=== PATIENT | female | born 1965 | race Caucasian/White ===

== ENCOUNTER 2018-11-04 10:17 | Observation (INO) ==
--- NOTE | 2018-11-04 10:31 | EKG Report ---
Test Performed on : 11/04/2018 10:27:34 AM Test Reason : cp/sob Blood Pressure : / mmHG Vent. Rate : 105 BPM Atrial Rate : 105 BPM P-R Int : 166 ms QRS Dur : 078 ms QT Int : 348 ms P-R-T Axes : 069 -13 057 degrees QTc Int : 459 ms Sinus tachycardia. Otherwise normal ECG When compared with ECG of 21-SEP-2008 07:58, No significant change was found Unconfirmed Result
[2018-11-04 10:44] LABS: BASO# 0.03 X1000 (0.0-0.2); BASO% 0.5 % (0.0-0.8); EOS% 1.5 % (0.0-10.0); HEMATOCRIT 38.1 % (37.0-47.0); HEMOGLOBIN 12.9 g/dL (12.0-16.0); LYMPH# 2.02 X1000 (1.2-3.4); LYMPH% 30.5 % (20.5-51.1); MCH 31.8 PG (27-31); MCHC 33.9 g/dL (33-37); MCV 93.8 FL (81-99); MONO# 0.48 X1000 (0.11-0.59); MONO% 7.2 % (1.7-9.3); MPV 9.4 FL (7.4-10.4); NEUT% 60.3 % (42.2-75.2); PLT 195 X1000 (130-400); RBC 4.06 XMIL (4.2-5.4); RDW 13.3 % (11.5-14.5); WBC 6.63 X1000 (4.8-10.8)
[2018-11-04 10:56] LABS: INR 1.09
[2018-11-04 10:57] LABS: PTT 36.7 Seconds (22.3-41.8)
[2018-11-04 12:01] LABS: AGAP 14; ALB/GLOB RATIO 1.2; ALBUMIN 4.4 g/dL (3.5-5.0); ALKALINE PHOSPHATASE 140 U/L (32-104); BUN 8 mg/dL (8-22); CALCIUM 9.4 mg/dL (8.8-10.2); CHLORIDE 104 mmol/L (98-107); CK PROFILE 70 U/L (24-173); COSMO 277; CREATININE 0.7 mg/dL (0.5-0.9); ESTIMATED GFR > 60; GLUCOSE 121 mg/dL (70-104); GOT 20 U/L (10-30); GPT 14 U/L (10-36); POTASSIUM 3.9 mmol/L (3.5-5.1); SODIUM 139 mmol/L (136-145); TCO2 21 mmol/L (25-35); TOTAL BILIRUBIN 0.59 mg/dL (0.20-1.00); TOTAL PROTEIN 8.2 g/dL (6.3-8.3)
--- NOTE | 2018-11-04 12:23 | Diag Imaging Result Doc PS360 ---
CHEST-2 VIEWS - 11/04/2018 INDICATION: cp/sob COMPARISON: 12/14/2012 FINDINGS: The lungs are normally expanded and clear. Heart size and mediastinal contours are normal. No pneumothorax or pleural effusion. There is a new stent in the region of the aortic arch. IMPRESSION: Negative exam. Electronically signed by Anand Hammer 11/04/2018 12:20 PM
[2018-11-04] MEDS ORDERED: ASPIRIN PO ONE (13:18)
[2018-11-04] MEDS ORDERED: ASPIRIN ONE (13:21)
[2018-11-04] MEDS ORDERED: MORPHINE IV ONE (15:40)
--- NOTE | 2018-11-04 18:22 | PROVIDER DOCUMENTATION ---
This chart was entered by Ann Umanzor Scribe, acting as scribe for Meseret Garcia CRNP. HPI-Chest Pain - General Chief Complaint: Chest Pain Stated Complaint: CHEST PAIN/CHEST TIGHTNESS Time Seen by Provider: 11/04/18 14:07 Source: patient, family (father) Allergies/Adverse Reactions: Patient Allergies Allergy/AdvReac Type Severity Reaction Status Date / Time modafinil [From Provigil] Allergy Unknown Verified 01/24/15 15:57 Sulfa (Sulfonamide Allergy HIVES Verified 12/14/12 10:59 Antibiotics) Home Medications: Home Medication List Medication Instructions Recorded Confirmed Last Taken Type Omeprazole 40 mg PO DAILY 12/14/12 01/24/15 01/24/15 07:00 History Sertraline HCl [Zoloft] 200 mg PO DAILY 12/14/12 01/24/15 01/25/15 07:00 History Allopurinol 100 mg PO DAILY 01/24/15 01/24/15 01/24/15 07:00 History Atorvastatin Calcium [Lipitor] 80 mg PO DAILY 01/24/15 01/24/15 01/24/15 07:00 History Meloxicam [Mobic] 15 mg PO DAILY 01/24/15 01/24/15 01/24/15 07:00 History - History of Present Illness-CP Nature of Presenting Problem: 53 yowf presents to the ed with c/o generalized chest wall pain with cough and sob. pt is still a smoker and states she has copd. pt sts she is anxious due to her mother having a SD last week. pt on exam sts the pain has gotten a little worse. also reports she has a cardiac hx and has had a stent placed. Location: reports: substernal Chest Pain Radiation: reports: no radiation Quality of Pain: reports: fullness, pressure Severity in ED: mild Onset/Duration: this morning Timing: gone now Context/Activities at Onset: reports: light activity Modifying Factors: improves with: nothing Associated Symptoms: reports: shortness of breath. denies: dizziness, nausea, vomiting Nitro Today/Relief: no nitro taken today Aspirin Treatment Today: 325 mg x 1, provided by ED Prior Chest Pain/Cardiac Workup: reports: no prior chest pain Similar Symptoms Previously?: No Recently Seen Here or By Another Healthcare Provider: No Review of Systems - Adult - REVIEW OF SYSTEMS - ADULT Constitutional: denies: chills, fever Eyes: reports: no symptoms reported Ears, Nose, Mouth & Throat: reports: no symptoms reported Cardiovascular: reports: see HPI, chest pain. denies: palpitations, syncope Respiratory: reports: see HPI, cough, shortness of breath Gastrointestinal: reports: no symptoms reported Genitourinary: reports: no symptoms reported Musculoskeletal: denies: back pain, neck pain Integumentary: reports: no symptoms reported Neurological: denies: dizziness/vertigo, headache/migraines Psychiatric: reports: see HPI, anxiety Endocrine: reports: no symptoms reported Hematologic/Lymphatic: reports: no symptoms reported Allergic/Immunologic: reports: no symptoms reported All Other Systems: Reviewed and Negative Past History - Adult - PAST MEDICAL HISTORY-ADULT Review of Records: reports: Old Records Reviewed, Nursing Assessment Review, Medications Reviewed, Social history reviewed & non-contributory. Major Childhood Illnesses: reports: denies history Cardiovascular: reports: HTN Respiratory: reports: denies history Gastrointestinal: reports: denies history Obstetrical/Gynecological: reports: denies history Genitourinary: reports: denies history Musculoskeletal: reports: denies history Hand Dominance: Right Handed Neurological: reports: denies history Psychiatric: reports: anxiety, ptsd Endocrine/Immune: reports: denies history Other Conditions: reports: denies history - PRIOR SURGERIES/PROCEDURES Surgical/Procedure History: reports: hysterectomy, other (stents) - IMMUNIZATION STATUS Childhood Immunizations: See Nurse Assessment Flu Vaccine: See Nurse Assessment - FAMILY HISTORY Family History: reviewed, not pertinent - SOCIAL HISTORY Smoking: cigarettes, greater than 1 pack/day Provider spent 3-5 mins advising pt. on dangers of tobacco.: Discussed manners to quit use, and f/u contacts for add'l counseling. Substance Use: denies Alcohol Use Frequency: never Living Situation: family Physical Exam-General - PHYSICAL EXAM-ADULT Initial Vital Signs Reviewed: Yes - CONSTITUTIONAL General Appearance: appears well, alert, no apparent distress, anxious - EYES Eyes: PERRL/EOMI, pink conjunctivae - HEAD, EARS, NOSE, MOUTH & THROAT HENMT: normocephalic/atraumatic, moist mucous membranes, normal ENT inspection - NECK Neck: non-tender, full range of motion, supple, normal inspection - RESPIRATORY Respiratory: chest non-tender, lungs clear, normal breath sounds - CARDIOVASCULAR Cardiovascular: normal peripheral pulses, tachycardia (101) - GASTROINTESTINAL (ABDOMEN) Abdominal Exam: normal bowel sounds, non tender, soft - LYMPHATIC Lymphatic: no adenopathy - MUSCULOSKELETAL Back Exam: normal inspection, no CVA tenderness, no vertebral tenderness Extremity: normal range of motion, non-tender, normal gait, normal inspection - SKIN Integumentary: normal color, normal turgor, warm/dry - NEUROLOGIC Neurologic: grossly normal, no motor/sensory deficits - PSYCHIATRIC Psych/Mental Status: normal mood/affect, normal thought content, normal thought process, oriented x 3, anxious - HEART Score HEART Score: History: Slightly Suspicious HEART Score: ECG: Normal HEART Score: Age: 45-65 Years HEART Score: Risk Factors for Atherosclerotic Disease: > or = 3 Risk Factors or History of Atherosclerotic Disease HEART Score: Troponin: < or = Normal Limit Total HEART Score:: 3 Progress - PLAN OF CARE/RESULTS Progress/Plan/Lab Results: Vital Signs - 8 hr 11/04/18 10:22 11/04/18 13:11 11/04/18 14:06 Temperature 97.7 F 97.8 F Pulse Rate 101 H 97 H Respiratory Rate 20 18 Blood Pressure 122/75 152/92 O2 Sat by Pulse Oximetry 98 98 97 11/04/18 14:07 11/04/18 14:10 11/04/18 14:14 Temperature 98.1 F Pulse Rate 84 Respiratory Rate 18 Blood Pressure 137/93 137/93 O2 Sat by Pulse Oximetry 97 97 99 11/04/18 14:17 11/04/18 14:20 11/04/18 14:30 Temperature Pulse Rate Respiratory Rate Blood Pressure 131/80 O2 Sat by Pulse Oximetry 95 96 96 11/04/18 14:32 11/04/18 14:33 11/04/18 14:40 Temperature Pulse Rate Respiratory Rate Blood Pressure 122/73 O2 Sat by Pulse Oximetry 96 95 94 L 11/04/18 14:47 11/04/18 14:50 11/04/18 15:00 Temperature Pulse Rate Respiratory Rate Blood Pressure 124/66 O2 Sat by Pulse Oximetry 95 95 95 11/04/18 15:02 11/04/18 15:10 11/04/18 15:17 Temperature Pulse Rate Respiratory Rate Blood Pressure 122/70 126/86 O2 Sat by Pulse Oximetry 94 L 97 95 11/04/18 15:20 11/04/18 15:30 11/04/18 15:32 Temperature Pulse Rate Respiratory Rate Blood Pressure 144/71 O2 Sat by Pulse Oximetry 97 97 96 11/04/18 15:40 11/04/18 15:50 11/04/18 16:32 Temperature Pulse Rate Respiratory Rate Blood Pressure 138/94 O2 Sat by Pulse Oximetry 95 90 L 97 11/04/18 16:33 11/04/18 16:40 11/04/18 16:47 Temperature Pulse Rate 80 84 Respiratory Rate 13 14 Blood Pressure 125/74 O2 Sat by Pulse Oximetry 96 95 94 L 11/04/18 16:50 11/04/18 17:00 11/04/18 17:10 Temperature Pulse Rate 102 H 83 78 Respiratory Rate 24 17 16 Blood Pressure O2 Sat by Pulse Oximetry 95 96 95 11/04/18 17:20 11/04/18 17:30 11/04/18 17:40 Temperature Pulse Rate 80 81 73 Respiratory Rate Blood Pressure O2 Sat by Pulse Oximetry 97 98 97 11/04/18 17:50 Temperature Pulse Rate 75 Respiratory Rate Blood Pressure O2 Sat by Pulse Oximetry 93 L Laboratory Results - last 24 hr 11/04/18 11/04/18 11/04/18 10:33 10:33 10:33 WBC 6.63 RBC 4.06 L Hgb 12.9 Hct 38.1 MCV 93.8 MCH 31.8 H MCHC 33.9 RDW Std Deviation 13.3 Plt Count 195 MPV 9.4 Immature Gran % (Auto) 0.0 Neut % (Auto) 60.3 Lymph % (Auto) 30.5 Stafford % (Auto) 7.2 Eos % (Auto) 1.5 Baso % (Auto) 0.5 Immature Gran # (Auto) 0.00 Neut # (Auto) 4.00 Lymph # (Auto) 2.02 Stafford # (Auto) 0.48 Eos # (Auto) 0.10 Baso # (Auto) 0.03 PT INR PTT (Actin FS) Sodium 139 Potassium 3.9 Chloride 104 Carbon Dioxide 21 L Anion Gap 14 BUN 8 Creatinine 0.7 Estimated GFR/1.73 m2 > 60 BUN/Creatinine Ratio 11 Glucose 121 H Calculated Osmolality 277 Calcium 9.4 Total Bilirubin 0.59 AST 20 ALT 14 Alkaline Phosphatase 140 H Creatine Kinase 70 Troponin T Ubn-B-Gbfxeyebgmq Pept 124 Total Protein 8.2 Albumin 4.4 Globulin 3.8 Albumin/Globulin Ratio 1.2 11/04/18 11/04/18 11/04/18 10:33 10:33 16:35 WBC RBC Hgb Hct MCV MCH MCHC RDW Std Deviation Plt Count MPV Immature Gran % (Auto) Neut % (Auto) Lymph % (Auto) Stafford % (Auto) Eos % (Auto) Baso % (Auto) Immature Gran # (Auto) Neut # (Auto) Lymph # (Auto) Stafford # (Auto) Eos # (Auto) Baso # (Auto) PT 15.0 INR 1.09 PTT (Actin FS) 36.7 Sodium Potassium Chloride Carbon Dioxide Anion Gap BUN Creatinine Estimated GFR/1.73 m2 BUN/Creatinine Ratio Glucose Calculated Osmolality Calcium Total Bilirubin AST ALT Alkaline Phosphatase Creatine Kinase Troponin T < 0.010 < 0.010 Stz-[id number]-Gxzfpldaajv Pept Total Protein Albumin Globulin Albumin/Globulin Ratio Orders Category Date Time Status Nursing- MD Consult Request ROUTINE Care 11/04/18 16:31 Active Saline Loc NOW Care 11/04/18 15:41 Active Physician/Provider Consults Routine Cons 11/04/18 16:30 Ordered Heart Healthy Diet Diet 11/04/18 16:28 Active Miscellaneous Diet Routine Diet 11/04/18 17:34 Active NPO Diet 11/05/18 00:01 Active CHEST-2 VIEWS [RAD] Stat Exams 11/04/18 11:48 Completed Juliana [MYOCARDIAL PERF SCAN, STR/REST] [NM] Routine Exams 11/04/18 16:29 Ordered A1C HGB W EST AVG GLUCOSE [CHEM] Routine Lab 11/05/18 06:00 Uncollected CBC WITH ELECTRONIC DIFF [HEME] Stat Lab 11/04/18 10:33 Completed CK PROFILE [SP CHEM] Stat Lab 11/04/18 10:33 Completed COMPREHENSIVE METABOLIC PANEL [CHEM] Stat Lab 11/04/18 10:33 Completed LIPID PROFILE W/CALC LDL [LIPIDS] Routine Lab 11/05/18 06:00 Uncollected PRO B-NATRIURETIC PEPTIDE Stat Lab 11/04/18 10:33 Completed PROTIME WITH INR [COAG] Stat Lab 11/04/18 10:33 Completed PTT [COAG] Stat Lab 11/04/18 10:33 Completed TROPONIN T Lab 11/04/18 21:00 Uncollected TROPONIN T Lab 11/05/18 05:00 Uncollected TROPONIN T Lab 11/05/18 13:00 Uncollected TROPONIN T Stat Lab 11/04/18 10:33 Completed TROPONIN T Stat Lab 11/04/18 16:35 Completed Aspirin Med 11/04/18 13:21 Discontinued 325 mg .ROUTE .STK-MED ONE Aspirin Med 11/04/18 13:18 Discontinued 325 mg PO NOW ONE Morphine Med 11/04/18 15:40 Discontinued 4 mg IV NOW ONE CP/SOB/Palp >45 yrs of Age Stat Oth 11/04/18 10:25 Ordered EKG [EKG] Routine Ther 11/05/18 07:00 Ordered EKG [EKG] Stat Ther 11/04/18 10:25 Draft Echo Spec/Color Dop W/O Contra Routine Ther 11/04/18 16:28 Completed Transfer/Admit Order [TRANSFER] Routine Transfer 11/04/18 17:03 Ordered Result Diagrams: 11/04/18 10:33 11/04/18 10:33 - REASSESSMENT Reassessment #1 Time Reassessed: 14:28 Status: improving - EKG 1 Time of EKG reading by physician:: 10:27 EKG Read and Signed by:: Rolf Moura EKG Interpretation (*Must complete 3 of following elements*): Normal Rate: 105 Rhythm: sinus tachycardia [place]: normal QRS: normal FL Interval: normal ST Wave: normal - XRAY 1 XRAY: Bilateral XRAY Study: Chest Impression: See EMR Report (CHEST-2 VIEWS - 11/04/2018 INDICATION: cp/sob COMPARISON: 12/14/2012 FINDINGS: The lungs are normally expanded and clear. Heart size and mediastinal contours are normal. No pneumothorax or pleural effusion. There is a new stent in the region of the aortic arch. IMPRESSION: Negative exam. Electronically signed by Anand Hammer 11/04/2018 12:20 PM 11/04/18 1220 Interpreting Physician: Anand Hammer MD Dictated Date/Time: 11/04/18 1220 cc: Rolf Moura MD; Mark Gray) - CONSULTS/PCP/HOSPITALIST Notification #1 *Consult/PCP/Hospitalist*: hospitalist spoke with dayne zhu for dr parrish Time Discussed: 15:25 Consult Disposition: Admit Departure - Departure Date of Disposition Decision: 11/04/18 Time of Disposition Decision: 15:28 DIAGNOSIS: Chest wall pain, Tobacco use disorder Disposition: ADMITTED INPATIENT 09 Certified Medical Emergency: Emergent Condition: Stable Referrals and Follow-Ups: Mark Gray [Primary Care Provider] - - Critical Care Note This patient required my direct & personal management of CC.: No Attestation - Physician/ GRADY Attestation Patient care was provided by Advanced Practice Provider:: Yes Advanced Practice Provider:: Meseret Garcia Advanced Practice Provider documentation review:: The Mid-level provider documentation, treatment plan and medical decision making was reviewed by the physician who agrees with all treatment and medical decision making by the MLP. The physician spent face to face time with patient:: No Advanced Practice Provider documentation review:: Supervising physician onsite and consulted in the evaluation and care of this patient. The physician did not have a face to face encounter with the patient. This chart was documented by the indicated scribe, (Ann Umanzor Scribe) and accurately reflects the services I performed and decisions made by me, Meseret Garcia CRNP, as attested by the provider's signature.
--- NOTE | 2018-11-04 18:41 | HISTORY AND PHYSICAL ---
PRIMARY CARE PROVIDER: DR. Mark Gray. DIE CAST DIE MAKER: DR. Garcia in [place]. VASCULAR SURGEON: Dr. Hair at [facility]. [facility]: Dr. Fitzgerald. HORTICULTURAL FARMWORKER: Dr. Escobar. PUBLIC AFFAIRS MANAGER: In [place]. CHIEF COMPLAINT: Chest pain. HISTORY OF PRESENT ILLNESS: Ms. Valles is a pleasant 53-year-old female, who carries a past medical history of osteoarthritis, fibromyalgia, neuralgia, MGUS, colitis, tobacco use and abuse, GERD, anxiety, hyperlipidemia, PTSD, and lipoma in her left lower heart. She did have to wear a heart monitor for that and everything checked out. She had several complaints, but her main complaint today was chest pain. She states she has pain under her left arm for 2 to 3 days; however, today she got some shortness of breath and tightness in her chest with heaviness. Her pain at that time was 8 to 9/10. Now, after receiving morphine, it is down to a 2. She also reports she has not been sleeping well for the past several months. She has had a weight loss of 45 pounds secondary to loss of appetite. This has been ongoing for a few months as well. She reports her mother just had a STEMI this past week and had 99% blockage, and had to have a stent, so she has been under some stress. We will admit her to the medical floor and work her up for chest pain rule out. PAST MEDICAL HISTORY: 1. Colitis. 2. Tobacco use and abuse. 3. Gastroesophageal reflux disease. 4. Anxiety. 5. PTSD. 6. Hyperlipidemia. 7. MGUS. 8. Lipoma in the right lower heart. 9. PTSD. 10. Osteoarthritis. 11. Fibromyalgia. 12. Neuralgia. PAST SURGICAL HISTORY: 1. ORIF of the distal radius. 2. Hysterectomy, secondary to precancerous cells. 3. Stent placement to her subclavian. 4. Left endarterectomy. 5. Cholecystectomy. 6. Carpal tendon transfer as well as carpal tunnel repair. 7. . 8. Left ear cyst removal. 9. Left arm cyst removal. 10. Tonsillectomy. FAMILY HISTORY: Mother with recent STEMI. Father with 2 KS's. Brother with coronary artery disease. Brother with skin cancer. Mother with mitral valve prolapse. Mother with lymphoma; she had to undergo chemotherapy for this, and skin cancers. SOCIAL HISTORY: She is a half pack to a pack per day smoker. She has done so for 40 years. She lives in [place]. She is . She has 1 child. ALLERGIES: 1. Provigil, unknown reaction. 2. Sulfa, causes hives. HOME MEDICATIONS: Home medications are not correct in the computer. She states she takes: 1. Pepcid. 2. Full-dose aspirin. 3. Cymbalta. 4. Plavix. 5. Statin. 6. She will take p.r.n. very cautiously laxatives for her constipation at times; however, if she overdoes it, she will have diarrhea for an extensive amount of time. REVIEW OF SYSTEMS: A 14 point review of systems was completed and negative except for those mentioned in HPI. PHYSICAL EXAMINATION: VITAL SIGNS: Temperature is 97.7 degrees, heart rate 84, respirations 18, blood pressure 138/94, O2 saturation 97% on room air. GENERAL: Ms. Valles is a pleasant 53-year-old female who is lying toward her left side, undergoing an echocardiogram, in no acute distress. HEENT: Atraumatic, normocephalic. PERRL. NECK: Supple. Trachea midline. CV: S1, S2 appreciated. No murmurs, gallops, or rubs noted. RESPIRATORY: Lung sounds clear to excursion. Nonlabored breathing. GI: Soft, nontender, nondistended. Positive bowel sounds in 4 quadrants. SKIN: Warm, dry, and intact. EXTREMITIES: Negative for edema. No clubbing, no cyanosis. NEUROLOGIC: Patient is alert and oriented x4. Follows commands. Moves all extremities. No focal deficits noted. DIAGNOSTIC DATA: EKG with sinus tachycardia at 105 beats per minute. Chest x-ray negative exam. LABORATORY DATA: White count 6, hemoglobin and hematocrit 12 and 38, platelet count 195,000. Sodium 139, potassium 39, BUN 8, creatinine 0.7, blood glucose was 121, alkaline phosphatase 140. Two sets of troponins are negative. ProBNP 124. Albumin 4.4. ASSESSMENT AND PLAN: 1. Chest pain, rule out. We will continue full-dose aspirin and make her n.p.o. after midnight. She will be set up for a Lexiscan in the morning. We will check a lipid profile and hemoglobin A1c. Nitroglycerin for chest pain. Echocardiogram is being done now. We will check recheck an electrocardiogram in the morning. Consult Cardiology. The patient does have risk factors as well as a strong family history; however, she has never had any cardiac stents before. She has had a subclavian stent in the past as well as endarterectomy. 2. Osteoarthritis, fibromyalgia, and neuralgia. Will continue with home medications when correctly verified. 3. Monoclonal gammopathy of unknown significance. Patient follows with Dr. Fitzgerald. 4. Colitis. Aware. 5. Tobacco use and abuse. Patient has been educated on smoking cessation as well as the means to quit. 6. Gastroesophageal reflux disease. Continue proton pump inhibitor. 7. Anxiety and post-traumatic stress disorder. Will continue Cymbalta when reconciled. 8. Hyperlipidemia. Will continue statin. 9. Lipoma in the heart. The patient has already been checked out by this. She states it is benign. 10. Colitis history. Aware. 11. Peripheral vascular disease. She has an endarterectomy as well as a stent placed to her subclavian. 12. Further recommendations to follow physician evaluation, laboratory and diagnostic data. Dictated by CLARI Hamm for Renan Chery MD cc: MD Mark Llamas MD
[2018-11-04] MEDS ORDERED: TYLENOL PO PRN (20:49)
[2018-11-04] MEDS ORDERED: NITROGLYCERIN SL PRN (20:49)
[2018-11-04] MEDS ORDERED: ZOFRAN IV PRN (20:49)
[2018-11-05 05:19] LABS: BASO# 0.03 X1000 (0.0-0.2); BASO% 0.5 % (0.0-0.8); EOS# 0.15 X1000 (0.0-0.7); EOS% 2.4 % (0.0-10.0); HEMATOCRIT 34.9 % (37.0-47.0); HEMOGLOBIN 11.7 g/dL (12.0-16.0); LYMPH# 3.05 X1000 (1.2-3.4); LYMPH% 48.9 % (20.5-51.1); MCH 31.6 PG (27-31); MCHC 33.5 g/dL (33-37); MCV 94.3 FL (81-99); MONO# 0.52 X1000 (0.11-0.59); MONO% 8.3 % (1.7-9.3); MPV 9.2 FL (7.4-10.4); NEUT# 2.49 X1000 (1.4-6.5); NEUT% 39.9 % (42.2-75.2); PLT 188 X1000 (130-400); RDW 13.4 % (11.5-14.5); WBC 6.24 X1000 (4.8-10.8)
[2018-11-05 05:33] LABS: HEMOGLOBIN A1C 4.9 % (4.8-6.0)
[2018-11-05 05:47] LABS: AGAP 11; ALB/GLOB RATIO 1.2; ALBUMIN 3.8 g/dL (3.5-5.0); ALKALINE PHOSPHATASE 120 U/L (32-104); BUN 9 mg/dL (8-22); CALCIUM 8.4 mg/dL (8.8-10.2); CHLORIDE 106 mmol/L (98-107); COSMO 280; CREATININE 0.6 mg/dL (0.5-0.9); ESTIMATED GFR > 60; GLUCOSE 95 mg/dL (70-104); GOT 17 U/L (10-30); GPT 12 U/L (10-36); POTASSIUM 3.8 mmol/L (3.5-5.1); SODIUM 141 mmol/L (136-145); TCO2 24 mmol/L (25-35); TOTAL BILIRUBIN 0.39 mg/dL (0.20-1.00); TOTAL PROTEIN 7.1 g/dL (6.3-8.3)
[2018-11-05 05:50] LABS: CHOLESTEROL 146 mg/dL (0-200); HDL 31 mg/dL (45-65); LDL 82 mg/dL; TRIGLYCERIDES 163 mg/dL (35-135); VLDL 33 mg/dL
[2018-11-05] MEDS: PRILOSEC PO SCH ×2 (06:18→16:08)
--- NOTE | 2018-11-05 07:56 | EKG Report ---
Test Performed on : 11/05/2018 06:36:42 AM Test Reason : chest pain Blood Pressure : / mmHG Vent. Rate : 072 BPM Atrial Rate : 072 BPM P-R Int : 180 ms QRS Dur : 092 ms QT Int : 452 ms P-R-T Axes : 065 014 049 degrees QTc Int : 494 ms Normal sinus rhythm. Prolonged QT Abnormal ECG When compared with ECG of 04-NOV-2018 10:27, (Unconfirmed) No significant change was found Unconfirmed Result
[2018-11-05] MEDS: ASPIRIN PO SCH ×2 (09:02→16:08)
[2018-11-05] MEDS: MORPHINE IV PRN ×2 (09:15→14:57)
--- NOTE | 2018-11-05 09:55 | ECHO REPORT ---
ORDER DATE: 11/04/2018 INTERPRETING PHYSICIAN: Loy Monsivais MD INDICATION: Chest pain and shortness of breath. M-MODE MEASUREMENTS: Left ventricle end diastole: 3.5 cm. Left ventricle end systole: 2 cm. Posterior wall: 0.9 cm. Interventricular septum: 0.9 cm. Left atrium: 3.3 cm. Aortic root: 3.6 cm. SUMMARY OF 2-DIMENSIONAL IMAGIN. Left ventricular function is normal with an ejection fraction of 66%. No wall motion abnormality is noted. 2. The aortic valve looks normal. Color flow mapping is unremarkable. 3. The tricuspid valve looks normal. Color flow mapping is unremarkable. 4. The inferior vena cava is not dilated. 5. Pulmonary artery pressure is estimated at 33 mmHg. 6. The pulmonic valve is visually normal. 7. The mitral valve looks normal. Color flow mapping is unremarkable. 8. Pulsed wave Doppler of mitral inflow is normal. 9. Tissue Doppler of septal and lateral mitral annulus averages 11 cm. 10.Pulmonary venous flow is normal. 11.There is no diastolic dysfunction. 12.There is a prominent epicardial fat pad. 13.There is no effusion. 14.The right-sided chambers appear to be unremarkable. Clinical correlation is recommended. cc: MD Renan Sky MD
[2018-11-05] MEDS ORDERED: LEXISCAN ONE (12:04)
--- NOTE | 2018-11-05 12:14 | CONSULTATION ---
DATE OF CONSULTATION: 11/05/2018 IMPRESSION: 1. Chest discomfort with mixed features but predominantly atypical presentation for myocardial ischemia. Cardiac enzymes normal despite extended duration of discomfort. 2. Mild nonobstructive coronary atherosclerosis on previous coronary CT scan performed october 2017. Study had been obtained to evaluate left atrial mass. 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 3. Anxiety disorder. 4. Fibromyalgia. 5. Post traumatic stress disorder. 6. Hypertension. 7. Hyperlipidemia. 8. Chronic ongoing cigarette use. 9. Peripheral vascular disease with history of previous left carotid endarterectomy and left subclavian artery stent. RECOMMENDATIONS: 1. Agree with pursuit of stress myocardial perfusion imaging. If negative, the patient can be discharged on continued anti-platelet therapy. If study abnormal, would consider pursuit of cardiac catheterization/coronary angiography. 2. Smoking cessation strongly advised. HISTORY: This 53-year-old white female with past history of anxiety disorder, PTSD, fibromyalgia, hypertension, hyperlipidemia, chronic cigarette use, peripheral vascular disease as well as nonobstructive coronary atherosclerosis by previous coronary CT scan last year, was admitted with chest discomfort. She is under a fair amount of emotional stress of late as her mother suffered a myocardial infarction following completion of chemotherapy. She is very anxious regarding this. She relates that she started having episodes of chest pressure for the last few days. There was some associated shortness of breath. She had a several hour episode that prompted her to come to the emergency room for evaluation. Symptoms have been relieved. Serial cardiac enzymes have been normal. Unfortunately, she continues to smoke. PAST MEDICAL HISTORY: 1. Mild nonobstructive coronary atherosclerosis by coronary CT scan last year. 2. Peripheral vascular disease with previous left carotid endarterectomy and left subclavian artery stent. 3. Hypertension. 4. Hyperlipidemia. 5. Anxiety disorder. 6. PTSD. 7. Fibromyalgia. 8. Gastroesophageal reflux disease. 9. Lipomatous interatrial septum. PAST SURGICAL HISTORY: Includes 1. Cholecystectomy. 2. section. 3. Open reduction, internal fixation of radius fracture. 4. Tonsillectomy. ALLERGIES: She is allergic or intolerant to sulfa. SOCIAL HISTORY: She is . She smokes 1 pack of cigarettes per day and has done so for 40 years. She does not use alcohol. FAMILY HISTORY: Positive for coronary disease. REVIEW OF SYSTEMS: Pulmonary: Noncontributory beyond history of present illness. Gastrointestinal: Noncontributory beyond history of present illness. Constitutional: Noncontributory beyond history of present illness. The remainder of review of systems negative/noncontributory beyond history of present illness with 14 total systems reviewed. PHYSICAL EXAMINATION: General: Reveals an overweight, middle-aged white female who appears anxious but in no distress. Vital signs: Blood pressure 129/82. Heart rate 84 and regular. HEENT: Extraocular movements intact. Mucous membranes moist. Neck: Supple. There is no significant jugular venous distention. Chest: Clear to auscultation. Cardiac Exam: Reveals a regular rate and rhythm without appreciable murmur or gallop. Abdomen: Soft. Bowel sounds are normal. Extremities: Without edema. Neurologic: Reveals her to be alert and fully oriented. Speech is fluent. She moves all 4 extremities equally well. PERTINENT DATA: A 12-lead EKG demonstrates normal sinus rhythm and borderline prolonged QT interval. LABORATORY DATA: Includes sodium 141, potassium 3.8, chloride 106, carbon dioxide 24, BUN 9 creatinine 0.6, glucose 95. White blood cell count 6.24, hematocrit 34.9, hemoglobin 11.7, platelet count 188,000. Magnesium 2.2. Serial troponins have been normal. cc: Norberto De La O MD
--- NOTE | 2018-11-05 16:21 | Diag Imaging Result Document ---
PROCEDURE NAME: MYOCARDIAL PERF SCAN, STR/REST - 11/04/2018 PROCEDURE: Lexiscan Cardiolite stress test. DESCRIPTION OF PROCEDURE IN DETAIL: Lexiscan was infused per standard protocol. There was no chest pain. Stress electrocardiogram was negative for ischemia. Following Lexiscan infusion, Cardiolite was injected. Gated SPECT images were obtained in standard views. Total of 12.7 mCi of Cardiolite was injected for the rest phase; 36.4 mCi of Cardiolite was injected for the stress phase. Images revealed normal left ventricular cavity size. There is significant diaphragmatic and chest wall attenuation. Better tracer uptake on stress compared to rest. There is normal myocardial perfusion. Left ventricular ejection fraction by gated SPECT was 88%. CONCLUSIONS: 1. No chest pain. 2. Negative Lexiscan stress electrocardiogram. 3. Normal myocardial perfusion. 4. Left ventricular ejection fraction 88%. cc: MD Renan Hennessy MD
[2018-11-05 17:26] VITALS: BP 109/58
--- NOTE | 2018-11-05 18:51 | DISCHARGE SUMMARY ---
ADMISSION DATE: 11/04/2018 DISCHARGE DATE: DISCHARGE DIAGNOSES: 1. Chest pain, resolved. 2. Acute coronary syndrome ruled out. 3. Osteoarthritis. 4. Fibromyalgia. 5. Monoclonal gammopathy of unknown significance. 6. Colitis. 7. Tobacco abuse. 8. Gastroesophageal reflux disease. 9. Hyperlipidemia. CONSULTATIONS: Dr. De La O from Cardiology. PROCEDURES: 1. Chest x-ray done on admission showed negative exam. 2. Echocardiogram Doppler was unremarkable with no gross valvular abnormalities noted, and ejection fraction was 66%. 3. Myocardial perfusion stress nuclear medicine showed no chest pain and negative Lexiscan stress electrocardiogram. Ejection fraction of 88%, normal myocardial perfusion. HOSPITAL COURSE: This is a 53-year-old female who has past medical history of osteoarthritis, fibromyalgia, neuralgia, MGUS and colitis. She presented basically to the emergency department complaining of chest pain that had been going on for the last 2 days and that traveled to the left arm, along with some shortness of breath and tightness in the chest. The patient was admitted to the hospital for further evaluation and treatment. We have checked troponins 3 times and those were negative completely. Echocardiogram and Lexiscan nuclear medicine are as mentioned above, so the patient is going to discharged in stable condition. DISCHARGE PHYSICAL EXAMINATION: Temperature 98 degrees, heart rate 81, respiratory rate 20, blood pressure 109/58, O2 saturation 100% on room air. General examination: This is a 53-year-old female lying in bed, in no acute distress. Cardiovascular exam: S1, S2 heard. No murmurs, gallops or rubs. Regular rate and rhythm. Respiratory exam: Clear bilaterally to auscultation. No work of breathing or use of accessory muscles. Abdomen is soft, nontender to palpation. Bowel sounds present. No organomegaly. Extremities: No clubbing, cyanosis or edema. Peripheral pulses present in both legs. Neurological: The patient is alert and oriented x3, moves all 4 extremities. DISCHARGE DISPOSITION: Home to self-care. DISCHARGE MEDICATIONS: We have not made any changes to her current medications. FOLLOWUP: With her primary care doctor in a week or two. cc: Renan Chery MD
== END 2018-11-05 18:48 | disposition home or self-care (01) ==
LOC: 3N 10:17 → ED 10:17
PROVIDERS: ATTEND Internal Medicine
CPT/HCPCS: 71020; 71046; 78452; 80053; 80061; 82550; 83036; 83735; 83880; 84484; 85025; 85610; 85730; 93005; 93017; 93306; 96374; 96376; 99285; A9270; A9500; G0378; J2270; J2785